=== PATIENT | female | born 1975 | race African-American/Black ===

== ENCOUNTER 2018-01-22 18:20 | Emergency (ER) | payer OTHER ==
[~2018-01-22] VITALS: Ht 165.1 cm; Wt 73.9 kg
[2018-01-22] MEDS ORDERED: FLEXERIL PO (21:23)
[2018-01-22 21:47] VITALS: BP 135/95
== END 2018-01-22 21:47 | disposition home or self-care (01) ==
LOC: ER 18:20
DX: S39.012A Strain of muscle, fascia and tendon of lower back, initial encounter (principal); V49.09XA Driver injured in collision with other motor vehicles in nontraffic accident, initial encounter; Y93.89 Activity, other specified; Y92.89 Other specified places as the place of occurrence of the external cause; Y99.8 Other external cause status